=== PATIENT | male | born 1960 | race Caucasian/White ===

== ENCOUNTER 2017-09-13 12:53 | Emergency (ER) | payer SELFPAY ==
[~2017-09-13] VITALS: Ht 182.9 cm; Wt 80.0 kg
[~2017-09-13 12:53] MED LIST: GEMF600T PO; METO25 PO; PRIL40CA PO; RANI150 PO
[2017-09-13] MEDS ORDERED: ONDANSETRON HCL 4 MG/2 ML VIAL IV PUSH ONE (13:30)
[2017-09-13] MEDS ORDERED: TETANUS/DIPHTHERIA TOXOID ADULT 0.5 ML VIAL IM ONE (13:30)
--- NOTE | 2017-09-13 13:36 | PD ---
HPI Chief Complaint: Marchman act Time Seen by Provider: 13:24 Travel History International Travel<30 days: No Contact w/Intl Traveler<30days: No Traveled to known affect area: No History of Present Illness HPI The patient is a 57-year-old male who presents to the emergency department for alcohol intoxication. The patient states that his friend, his dog, . The patient states she normally does not drink alcohol, however, stated he simply wanted to drink to the point of being drunk. The patient was seen at a convenience store intoxicated, he get down on his knees and apparently had a "emotional breakdown "according to EMS. The patient apparently made suicidal comments to police on scene and was placed in her Marchman act, however, not a Higuera act. Upon arrival the patient denies any suicidal ideation or homicidal ideation. The patient states he simply is upset over the of his dog and states that his previous comments were made secondary to drinking alcohol. He denies any suicidal ideation upon arrival. He does note a mild headache and some abrasions to the elbows. According to EMS the patient apparently was on his knees when he fell 4 striking his head on the ground, unknown LOC. He did have 1 episode of vomiting. He denies taking any anticoagulants. PFSH Past Medical History Cancer: Yes (BASAL CELL CARCINOMA ON FACE) Cardiac C[facility]: [place] ) Cardiovascular Problems: Yes ([facility] [place], 2 STENTS) Chemotherapy: No Diabetes: No Diminished Hearing: No Endocrine: No Gastrointestinal Disorders: Yes GERD: Yes Genitourinary: No Hepatitis: No Hiatal Hernia: No Hypertension: Yes Immune Disorder: No Implanted Vascular Access Dvce: No Musculoskeletal: No Neurologic: No Psychiatric: No Reproductive: No Respiratory: No Myocardial Infarction: Yes (X2) Thyroid Disease: No Past Surgical History Abdominal Surgery: No Cardiac Surgery: Yes (2 STENTS RT CAROTID ARTERY) Coronary Stent: Yes Ear Surgery: No Endocrine Surgery: No Eye Surgery: No Genitourinary Surgery: No Gynecologic Surgery: No Neurologic Surgery: No Oral Surgery: Yes (FULL SET OF DENTURES) Pacemaker: No Thoracic Surgery: Yes (2 STENTS) Other Surgery: Yes Social History Alcohol Use: No (DENIES) Tobacco Use: Yes (1 1/2 PPD) Substance Use: Yes (MARIJUANA OCCASSIONAL) Allergies-Medications (Allergen,Severity, Reaction): Coded Allergies: No Known Allergies (Verified , 7/23/15) Reported Meds & Prescriptions Reported Meds & Active Scripts Active No Active Prescriptions or Reported Medications Review of Systems Except as stated in HPI: all other systems reviewed are Neg General / Constitutional: No: Fever Eyes: No: Blurred Vision, Visual changes HENT: Positive: Headaches, No: Neck Pain Cardiovascular: No: Chest Pain or Discomfort Respiratory: No: Shortness of Breath Gastrointestinal: Positive: Nausea, Vomiting, No: Abdominal Pain Musculoskeletal: No: Weakness Neurologic: Positive: Headache, No: Dizziness Psychiatric: Positive: Substance Abuse (alcohol intoxication today) Physical Exam Narrative GENERAL: Awake, alert, pleasant 57-year-old male who appears his stated age and is in no acute respiratory distress. SKIN: Focused skin assessment warm/dry. HEAD: Small area of ecchymosis just above the right orbit. EYES: Left pupil is 3 mm and reactive, right pupils 2 mm and reactive. EOMs appear intact. ENT: No nasal bleeding or discharge. Mucous membranes pink and moist. NECK: Trachea midline. No JVD. No tenderness of the cervical vertebrae. CARDIOVASCULAR: Regular rate and rhythm. No murmur appreciated. RESPIRATORY: No accessory muscle use. Clear to auscultation. Breath sounds equal bilaterally. GASTROINTESTINAL: Abdomen soft, non-tender, nondistended. No rebound tenderness. MUSCULOSKELETAL: No obvious deformities. No clubbing. No cyanosis. No edema. NEUROLOGICAL: Awake and alert. No obvious cranial nerve deficits. Motor grossly within normal limits. Normal speech. Nonfocal. Patient is oriented to person, month, year, and billing assistant. PSYCHIATRIC: Tearful during examination. Data Data Last Documented VS Vital Signs Date Time Temp Pulse Resp B/P (MAP) Pulse Ox O2 Delivery O2 Flow Rate FiO2 09/13/17 18:31 09/13/17 18:00 88 17 94 Room Air 09/13/17 13:38 [address] Brain W/O Iv Contrast(Rout) (09/13/17 ) Basic Metabolic Panel (Bmp) (09/13/17 13:29) Alcohol (Ethanol) (09/13/17 13:29) Ondansetron Inj (Zofran Inj) (09/13/17 13:30) Tetanus/Diphtheria Tox Adult (Tetanus/Di (09/13/17 13:30) Lorazepam (Ativan) (09/13/17 15:15) Lorazepam Inj (Ativan Inj) (09/13/17 15:30) Haloperidol Inj (Haldol Inj) (09/13/17 15:30) Lorazepam Inj (Ativan Inj) (09/13/17 15:16) Restraints Violent (09/13/17 15:32) Ed Discharge Order (09/13/17 18:06) Labs Laboratory Tests Test 09/13/17 15:00 Blood Urea Nitrogen 6 MG/DL Creatinine 0.80 MG/DL Random Glucose 112 MG/DL Calcium Level 8.6 MG/DL Sodium Level 140 MEQ/L Potassium Level 3.8 MEQ/L Chloride Level 106 MEQ/L Carbon Dioxide Level 28.1 MEQ/L Anion Gap 6 MEQ/L Estimat Glomerular Filtration Rate 99 ML/MIN Ethyl Alcohol Level 168 MG/DL [facility] Medical Decision Making Medical Screen Exam Complete: Yes Emergency Medical Condition: Yes Medical Record Reviewed: Yes Interpretation(s) Last Impressions Head CT 09/13/17 0000 Signed Impressions: Service Date/Time: Wednesday, September 13, 2017 14:07 - CONCLUSION: 1. No acute intracranial abnormality. 2. Chronic bilateral ethmoid and maxillary sinus disease. Antwon Hollis Jr., MD Differential Diagnosis Differential diagnosis includes substance induced mood disorder, alcohol intoxication, hyponatremia, closed head injury, skull fracture, intracranial hemorrhage, abrasion. Narrative Course IV was established, labs are drawn and sent, and the patient was placed on monitoring. CT of the brain was obtained. Tetanus shot was updated. The patient was administered 4 mg of Zofran intravenously. CT of the brain was negative. Alcohol level was elevated at 168. The patient became physically and verbally aggressive with staff, was using profanity, therefore, was chemically sedated with Ativan 2 mg IM and Haldol 5 mg IM and placed in restraints. The patient was then monitored in the emergency department, patient was stable. He will be discharged upon awakening when he is able to ambulate and has a safe disposition home. Diagnosis Primary Impression: Alcohol intoxication Qualified Codes: F10.929 - Alcohol use, unspecified with intoxication, unspecified Additional Impressions: Closed head injury Qualified Codes: S09.90XA - Unspecified injury of head, initial encounter Multiple abrasions Patient Instructions: General Instructions Additional Instructions: Decrease alcohol intake. Follow up with her primary physician. Wound care instructions. Return if symptoms worsen or progress. Med/Other Pt SpecificInfo: No Change to Meds Scripts No Active Prescriptions or Reported Meds Disposition: 01 DISCHARGE HOME Condition: Stable Neftali Devlin MD Sep 13, 2017 13:36
[2017-09-13 13:38] VITALS: BP 135/66; PULSE 68; RESP 17; TEMP 97.5; O2SAT 94
--- NOTE | 2017-09-13 14:22 | RADRPT ---
EXAM DATE/TIME: 09/13/2017 14:07 [facility] COMPARISON: No previous studies available for comparison. INDICATIONS : Fell from kneeling position, hit head RADIATION DOSE: 40.49 CTDIvol (mGy) MEDICAL HISTORY : Hypertension. Cardiovascular disease Basal cell carcinoma on face SURGICAL HISTORY : None. ENCOUNTER: Initial ACUITY: 1 day PAIN SCALE: Non-responsive LOCATION: Bilateral cranial TECHNIQUE: Multiple contiguous axial images were obtained of the head. Using automated exposure control and adj ustment of the mA and/or kV according to patient size, radiation dose was kept as low as reasonably a chievable to obtain optimal diagnostic quality images. DICOM format image data is available electro nically for review and comparison. FINDINGS: CEREBRUM: The ventricles are normal for age. No evidence of midline shift, mass lesion, hemorrhage or acute in farction. No extra-axial fluid collections are seen. POSTERIOR FOSSA: The cerebellum and brainstem are intact. The 4th ventricle is midline. The cerebellopontine angle i s unremarkable. EXTRACRANIAL: The visualized portion of the orbits is intact. Mucosal thickening without air-fluid levels throughou t the ethmoid air cells and maxillary sinuses bilaterally SKULL: The calvaria is intact. No evidence of skull fracture. CONCLUSION: 1. No acute intracranial abnormality. 2. Chronic bilateral ethmoid and maxillary sinus disease. Antwon Hollis Jr., MD on September 13, 2017 at 14:19 Board Certified Radiologist. This report was verified electronically.
[2017-09-13] MEDS ORDERED: LORazepam 1 MG TAB PO ONE (15:15)
[2017-09-13] MEDS ORDERED: LORazepam 2 MG/ML VIAL ONE (15:16)
[2017-09-13] MEDS ORDERED: HALOPERIDOL LACTATE 5 MG/ML AMP IM ONE (15:30)
[2017-09-13] MEDS ORDERED: LORazepam 2 MG/ML VIAL IM ONE (15:30)
[2017-09-13 15:32] LABS: BICARBONATE 28.1 MEQ/L (21.0-32.0); CALCIUM 8.6 MG/DL (8.5-10.1); CREATININE 0.8 MG/DL (0.60-1.30)
[2017-09-13 17:00] VITALS: BP 148/82; PULSE 84; RESP 14; O2SAT 93
[2017-09-13 18:00] VITALS: BP 147/88; PULSE 88; RESP 17; O2SAT 94
--- NOTE | 2017-09-13 18:15 | PD ---
Data Data Last Documented VS Vital Signs Date Time Temp Pulse Resp B/P (MAP) Pulse Ox O2 Delivery O2 Flow Rate FiO2 09/13/17 18:00 88 17 147/88 (107) 94 Room Air 09/13/17 13:38 [address] Brain W/O Iv Contrast(Rout) (09/13/17 ) Basic Metabolic Panel (Bmp) (09/13/17 13:29) Alcohol (Ethanol) (09/13/17 13:29) Ondansetron Inj (Zofran Inj) (09/13/17 13:30) Tetanus/Diphtheria Tox Adult (Tetanus/Di (09/13/17 13:30) Lorazepam (Ativan) (09/13/17 15:15) Lorazepam Inj (Ativan Inj) (09/13/17 15:30) Haloperidol Inj (Haldol Inj) (09/13/17 15:30) Lorazepam Inj (Ativan Inj) (09/13/17 15:16) Restraints Violent (09/13/17 15:32) Ed Discharge Order (09/13/17 18:06) Labs Laboratory Tests Test 09/13/17 15:00 Blood Urea Nitrogen 6 MG/DL Creatinine 0.80 MG/DL Random Glucose 112 MG/DL Calcium Level 8.6 MG/DL Sodium Level 140 MEQ/L Potassium Level 3.8 MEQ/L Chloride Level 106 MEQ/L Carbon Dioxide Level 28.1 MEQ/L Anion Gap 6 MEQ/L Estimat Glomerular Filtration Rate 99 ML/MIN Ethyl Alcohol Level 168 MG/DL [facility] Medical Record Reviewed: Yes Supervised Visit with PRAFUL: No Narrative Course CBC & BMP Diagram 09/13/17 15:00 Calcium Level 8.6 Blood alcohol is 168 Please revert to the outgoing provider's note. The patient was reassessed by me at 6 PM and was found to be resting comfortably. He speaking full sentences at that time with a slightly sleepy after Ativan and Haldol. Patient is sufficiently clinically sober at this point for discharge home. Diagnosis Primary Impression: Alcohol intoxication Qualified Codes: F10.929 - Alcohol use, unspecified with intoxication, unspecified Med/Other Pt SpecificInfo: No Change to Meds Scripts No Active Prescriptions or Reported Meds Disposition: DISCHARGE HOME Condition: Stable Gage Jerry MD Sep 13, 2017 18:15
== END 2017-09-13 18:50 | disposition home or self-care (01) ==
LOC: NEPD 12:53
DX: F10.929 Alcohol use, unspecified with intoxication, unspecified (principal); S09.90XA Unspecified injury of head, initial encounter; W18.30XA Fall on same level, unspecified, initial encounter; I25.2 Old myocardial infarction; I10 Essential (primary) hypertension; F17.210 Nicotine dependence, cigarettes, uncomplicated; Z23 Encounter for immunization
CPT/HCPCS: 70450; 80048; 80307; 90471; 90714; 96372; 96374; 99285; J1630; J2060; J2405